=== PATIENT | male | born 1960 | race Caucasian/White ===

== ENCOUNTER → 2021-07-24 10:50 | Observation (INO) ==
[2021-07-23 12:54] LABS: BASOPHILS # (AUTO) 0.1 X10^3/uL (0.0-0.1); BASOPHILS % (AUTO) 1.2 % (0.2-1.0); EOSINOPHILS # (AUTO) 0.1 x10^3/uL (0.0-0.2); EOSINOPHILS % (AUTO) 2.1 % (0.9-2.9); HEMATOCRIT 42.3 % (42.0-54.0); HEMOGLOBIN 14.5 g/dL (13.5-18.0); LYMPHOCYTES # (AUTO) 1.2 X10^3/uL (1.3-2.9); LYMPHOCYTES % (AUTO) 24.3 % (21.0-51.0); MEAN CORPUSCULAR HEMOGLOBIN 28.7 pg (27.0-34.0); MEAN CORPUSCULAR HGB CONC 34.2 g/dL (33.0-35.0); MEAN CORPUSCULAR VOLUME 83.7 fL (80.0-100.0); MEAN PLATELET VOLUME 7.5 fL (7.4-11.0); MONOCYTES # (AUTO) 0.3 x10^3/uL (0.3-0.8); MONOCYTES % (AUTO) 6.6 % (0.0-13.0); NEUTROPHILS # (AUTO) 3.2 x10^3/uL (2.2-4.8); NEUTROPHILS % (AUTO) 65.8 % (42.0-75.0); RED BLOOD COUNT 5.05 X10^6/uL (4.7-6.0); RED CELL DISTRIBUTION WIDTH 14.5 % (11.6-16.5); WHITE BLOOD COUNT 4.9 X10^3/uL (3.6-10.0)
[2021-07-23 12:59] LABS: ERYTHROCYTE SEDIMENTATION RATE 7 MM/HOUR (0-15)
[2021-07-23 13:04] LABS: HEMOGLOBIN A1C 6.7 %
[2021-07-23 13:11] VITALS: BMI 51.5
[2021-07-23 13:12] LABS: ALANINE AMINOTRANSFERASE 59 Units/L (12-78); ALBUMIN 3.5 g/dL (3.4-5.0); ALKALINE PHOSPHATASE 37 Units/L (46-116); AMYLASE 42 Units/L (25-115); ASPARTATE AMINO TRANSFERASE 41 Units/L (15-37); BLOOD UREA NITROGEN 15 mg/dL (7-18); CALCIUM 8.3 mg/dL (8.5-10.1); CHLORIDE 102 mmol/L (98-107); CHOL/HDL RATIO 3.4 (0.0-5.0); CHOLESTEROL 131 mg/dL (0-200); CKMB % 1.1 % (<4); CREATINE KINASE 127 Units/L (39-308); CREATINE KINASE MB 1.4 ng/mL (0-4.0); CREATININE 0.89 mg/dL (0.70-1.30); HDL CHOLESTEROL 38 mg/dL (40-60); LIPASE 138 Units/L (73-393); SODIUM 139 mmol/L (136-145); TOTAL PROTEIN 6.6 g/dL (6.4-8.2); TRIGLYCERIDES 85 mg/dL (0-150); eGFR NON BLACK RACES > 60 (>60)
[2021-07-23 15:24] LABS: BILIRUBIN,URINE NEGATIVE (NEGATIVE); BLOOD/HEMOGLOBIN,URINE NEGATIVE (NEGATIVE); GLUCOSE, URINE NEGATIVE (NEGATIVE); KETONES,URINE NEGATIVE (NEGATIVE); LEUKOCYTE ESTERASE ,URINE NEGATIVE (NEGATIVE); NITRITES,URINE NEGATIVE (NEGATIVE); PROTEIN,URINE NEGATIVE (NEGATIVE); UROBILINOGEN,URINE NORMAL (NORMAL)
[2021-07-23 15:41] LABS: APPEARANCE,URINE CLEAR (CLEAR); COLOR,URINE YELLOW (YELLOW)
--- NOTE | 2021-07-23 16:04 | RAD ---
HISTORYchest pain, abd pain Relevant Clinical InformationSTUDYCHEST, PA/LAT ADULTCOMPARISONChest x-ray dated July 14, 2019.FINDINGSThe trachea is midline. The cardiac silhouette is stably enlarged without overt signs of failure.. The lungs are clear without focal infiltrate, pneumothorax, or effusion. The bony thorax is unremarkable.IMPRESSIONNo acute cardiopulmonary findings .Electronically signed by: OLIVE BENEDICT (Jul 23, 2021 16:03:45)
--- NOTE | 2021-07-23 16:07 | CT ---
HISTORYABD PAINSTUDYABDOMEN/PELVIS WITH CONCOMPARISONNoneTECHNIQUEAxial CT images of the abdomen and pelvis were obtained after the administration of IV contrast, 100 mL Omnipaque 350, and reformatted into coronal and sagittal planes for further evaluation. Enteric contrast was also administered.Radiation dose: 1573.00 mGy-cm total DLPFINDINGSLung bases are clear.Stomach appears normal.Diffuse fatty infiltration of the liver.Spleen, pancreas and adrenal glands are unremarkable.Gallbladder appears normal with no biliary dilatation.Homogeneous enhancement of the kidneys without hydronephrosis or hydroureter.Unremarkable appearance of the urinary bladder.Imaged reproductive structures are unremarkable.Unremarkable appearance of the large and small bowel.No evidence of acute appendicitis.No pneumoperitoneum.No significant fluid collection.No adenopathy.No acute osseous abnormality.Multilevel [id number] degenerative disc disease throughout the thoracolumbar spine.Mild to moderate facet degenerative changes in the lumbar spine.Small fat containing umbilical hernia without inflammatory changes.IMPRESSION1. No acute intra-abdominal abnormality detected.2. Diffuse fatty infiltration of the liver.Electronically signed by: Yaakov Beltran (Jul 23, 2021 16:06:45)
[2021-07-23] MEDS: TORADOL 30 MG VIAL IVP PRN (18:10)
[2021-07-23 18:15] LABS: CKMB % 0.9 % (<4); CREATINE KINASE MB 1.2 ng/mL (0-4.0)
[2021-07-24 00:12] LABS: CKMB % 0.9 % (<4); CREATINE KINASE MB 1.1 ng/mL (0-4.0)
[2021-07-24 06:18] LABS: BASOPHILS % (AUTO) 0.8 % (0.2-1.0); EOSINOPHILS # (AUTO) 0.1 x10^3/uL (0.0-0.2); HEMATOCRIT 41.9 % (42.0-54.0); HEMOGLOBIN 14.3 g/dL (13.5-18.0); LYMPHOCYTES % (AUTO) 25.9 % (21.0-51.0); MEAN CORPUSCULAR HEMOGLOBIN 28.3 pg (27.0-34.0); MEAN CORPUSCULAR HGB CONC 34.2 g/dL (33.0-35.0); MEAN CORPUSCULAR VOLUME 82.7 fL (80.0-100.0); MEAN PLATELET VOLUME 7.7 fL (7.4-11.0); MONOCYTES # (AUTO) 0.3 x10^3/uL (0.3-0.8); MONOCYTES % (AUTO) 6.6 % (0.0-13.0); NEUTROPHILS # (AUTO) 2.5 x10^3/uL (2.2-4.8); NEUTROPHILS % (AUTO) 63.7 % (42.0-75.0); RED BLOOD COUNT 5.06 X10^6/uL (4.7-6.0); RED CELL DISTRIBUTION WIDTH 14.6 % (11.6-16.5)
[2021-07-24] MEDS: TORADOL 30 MG VIAL IVP PRN (06:20)
[2021-07-24 06:36] LABS: ALANINE AMINOTRANSFERASE 57 Units/L (12-78); ALBUMIN 3.1 g/dL (3.4-5.0); ALKALINE PHOSPHATASE 36 Units/L (46-116); ASPARTATE AMINO TRANSFERASE 35 Units/L (15-37); BLOOD UREA NITROGEN 15 mg/dL (7-18); CHLORIDE 102 mmol/L (98-107); CHOL/HDL RATIO 3.1 (0.0-5.0); CHOLESTEROL 118 mg/dL (0-200); COR CA(FOR HYPOALB) 8.7 mg/dL (8.5-10.1); COR NA(FOR HYPERGLY) 137 mmol/L (136-145); CREATININE 0.91 mg/dL (0.70-1.30); HDL CHOLESTEROL 38 mg/dL (40-60); SODIUM 136 mmol/L (136-145); TOTAL PROTEIN 6.2 g/dL (6.4-8.2); TRIGLYCERIDES 129 mg/dL (0-150); eGFR NON BLACK RACES > 60 (>60)
[2021-07-24 07:48] VITALS: BP 164/72
[~2021-07-24 10:50] MED LIST: ACTOS PO SCH; GLUCOPHAGE XR 24-HR PO SCH; NS 1,000 ML IV 1,000 ML IV SCH; NovoLIN R (or HumuLIN R) SUBCUT PRN; SNACK - Diabetic Appropriate PO SCH; STERILE WATER IRRIGATION IR ONE
== END | disposition home or self-care (01) ==
LOC: MED/SURG
PROVIDERS: ADMIT Obstetrics & Gynecology Obstetrics; ATTEND Obstetrics & Gynecology Obstetrics